=== PATIENT | male | born 2000 | race Caucasian/White ===

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

== ENCOUNTER 2020-04-14 22:27 | Observation (INO) ==
[2020-04-14] MEDS ORDERED: 0.9 % Sodium Chloride 1,000 ML IVC ONE ×2 (22:43→23:31)
[2020-04-14 23:10] LABS: Basophils % 0.2 %; Hemoglobin 17.3 g/dL (12.9-16.9); Red Cell Distribution Width 11.7 % (11.5-14.5); Segmented Neutrophils % 86.5 %
[2020-04-14 23:11] LABS: Hematocrit 48.7 % (37.5-50.1); Immature Granulocytes % 1.1 % (0-4); Mean Corpuscular HGB Conc 35.5 g/dL (31.6-35.5); Mean Corpuscular Hemoglobin 31.8 pg (28.0-33.3); Mean Corpuscular Volume 89.5 fL (83.0-100.0); Mean Platelet Volume 10.1 fL (9.4-12.4); Monocytes # 2.1 K/mcL (0.0-1.3); Monocytes % 8.2 %; Neutrophils # 22.1 K/mcL (1.6-8.9); Platelet Count 503 K/mcL (140-400); Red Blood Count 5.44 M/mcL (4.19-5.50); White Blood Count 25.6 K/mcL (4.3-11.1)
[2020-04-14 23:13] LABS: Basophils # 0.1 K/mcL (0.0-0.2)
[2020-04-14 23:14] LABS: VBG HCO3 17 mEq/L (21-27); VBG PCO2 35 mmHg (41-51); VBG PH 7.28 pH Units (7.32-7.42); VBG PO2 41 mmHg (25-50)
[2020-04-14 23:38] LABS: Platelet Estimate Normal (Normal)
[2020-04-14 23:40] LABS: Alanine Aminotransferase 23 Units/L (7-52); Albumin 5.4 g/dL (3.5-5.7); Albumin/Globulin Ratio 1.7 (1.1-2.2); Alkaline Phosphatase 93 Units/L (34-104); Aspartate Amino Transferase 13 Units/L (13-39); BUN/Creatinine Ratio 28 (6-26); Bilirubin,Direct 0.1 mg/dL (0.0-0.2); Bilirubin,Indirect 0.9 mg/dL (0.0-1.0); Blood Urea Nitrogen 39 mg/dL (6-20); Calcium 10.4 mg/dL (8.6-10.3); Carbon Dioxide 13 mEq/L (23-29); Chloride 86 mEq/L (98-107); Globulin 3.1 g/dL (2.4-3.5); Glucose 543 mg/dL (70-105); Lipase 3 Units/L (11-82); Magnesium 2.4 mg/dL (1.6-2.6); Osmolality,Calculated 308 (280-300); Phosphorous 5.1 mg/dL (2.7-4.5); Potassium 4.2 mEq/L (3.5-5.1); Sodium 132 mEq/L (136-145); Total Protein 8.5 g/dL (6.4-8.9); eGFR For African Americans > 60 (> 60); eGFR For Non-African Americans > 60 (> 60)
[2020-04-15] MEDS ORDERED: Naloxone 0.4 MG/ML INJ IVP PRN (01:30)
[2020-04-15] MEDS ORDERED: Acetaminophen 325 MG TABLET PO PRN (01:30)
[2020-04-15] MEDS ORDERED: D5% in 0.45% NACL 1,000 ML IVC PRN (01:32)
[2020-04-15] MEDS ORDERED: Insulin Regular, Human 100 UNIT/ML IV PRN ×2 (01:32)
[2020-04-15] MEDS ORDERED: 0.9 % Sodium Chloride 1,000 ML IVC PRN ×2 (01:45)
[2020-04-15] MEDS ORDERED: Insulin Human Regular 100 UNIT in 0.9 % Sodium Chloride 100 ML IVC SCH (01:45)
[2020-04-15] MEDS: Insulin Human Regular 100 UNIT in 0.9 % Sodium Chloride 100 ML IVC SCH ×2 (02:07→11:05)
[2020-04-15] MEDS: 0.45 % Sodium Chloride w/KCl 20 MEQ/1,000 ML MLS IVC SCH ×3 (02:07→05:15)
[2020-04-15 03:27] LABS: Basophils % 0.1 %; Hematocrit 43.5 % (37.5-50.1); Immature Granulocytes % 0.8 % (0-4); Lymphocytes # 1.1 K/mcL (0.6-4.6); Lymphocytes % 5.2 %; Mean Corpuscular HGB Conc 34.9 g/dL (31.6-35.5); Mean Corpuscular Hemoglobin 31.3 pg (28.0-33.3); Mean Corpuscular Volume 89.5 fL (83.0-100.0); Mean Platelet Volume 9.9 fL (9.4-12.4); Monocytes # 1.3 K/mcL (0.0-1.3); Monocytes % 6.1 %; Neutrophils # 18.5 K/mcL (1.6-8.9); Platelet Count 384 K/mcL (140-400); Red Blood Count 4.86 M/mcL (4.19-5.50); Red Cell Distribution Width 11.6 % (11.5-14.5); Segmented Neutrophils % 87.8 %
[2020-04-15 03:28] LABS: Hemoglobin 15.2 g/dL (12.9-16.9)
[2020-04-15 03:38] LABS: BUN/Creatinine Ratio 27 (6-26); Blood Urea Nitrogen 29 mg/dL (6-20); Carbon Dioxide 15 mEq/L (23-29); Chloride 101 mEq/L (98-107); Glucose 337 mg/dL (70-105); Osmolality,Calculated 299 (280-300); Phosphorous 2.2 mg/dL (2.7-4.5); Potassium 4.3 mEq/L (3.5-5.1); Sodium 135 mEq/L (136-145); eGFR For African Americans > 60 (> 60); eGFR For Non-African Americans > 60 (> 60)
[2020-04-15] MEDS: D5% in 0.45% NACL w KCl 20 MEQ/1,000 ML MLS IVC PRN ×2 (04:20→09:16)
[2020-04-15 05:53] LABS: Estimated Average Glucose 272 mg/dl
[2020-04-15] MEDS: Ondansetron 4 MG/2 ML VIAL IVP PRN ×2 (06:42→18:32)
[2020-04-15 08:05] LABS: VBG HCO3 21 mEq/L (21-27); VBG PCO2 34 mmHg (41-51); VBG PH 7.39 pH Units (7.32-7.42); VBG PO2 230 mmHg (25-50)
[2020-04-15 08:17] LABS: BUN/Creatinine Ratio 25 (6-26); Blood Urea Nitrogen 21 mg/dL (6-20); Calcium 8.5 mg/dL (8.6-10.3); Carbon Dioxide 21 mEq/L (23-29); Chloride 105 mEq/L (98-107); Glucose 226 mg/dL (70-105); Osmolality,Calculated 288 (280-300); Potassium 3.9 mEq/L (3.5-5.1); Sodium 134 mEq/L (136-145); eGFR For African Americans > 60 (> 60); eGFR For Non-African Americans > 60 (> 60)
[2020-04-15] MEDS: *HR* Dextrose 50 % in Water (Vial) 50 ML VIAL IVP PRN ×2 (11:06→12:40)
[2020-04-15 13:39] LABS: Basophils % 0.2 %; Hematocrit 37.8 % (37.5-50.1); Immature Granulocytes % 0.7 % (0-4); Lymphocytes % 5.4 %; Mean Corpuscular HGB Conc 34.1 g/dL (31.6-35.5); Mean Corpuscular Hemoglobin 30.2 pg (28.0-33.3); Mean Corpuscular Volume 88.5 fL (83.0-100.0); Mean Platelet Volume 9.9 fL (9.4-12.4); Monocytes # 2.6 K/mcL (0.0-1.3); Monocytes % 13.7 %; Neutrophils # 15.3 K/mcL (1.6-8.9); Platelet Count 306 K/mcL (140-400); Red Blood Count 4.27 M/mcL (4.19-5.50); Red Cell Distribution Width 11.7 % (11.5-14.5); White Blood Count 19.1 K/mcL (4.3-11.1)
[2020-04-15 13:42] LABS: Hemoglobin 12.9 g/dL (12.9-16.9)
[2020-04-15 13:51] LABS: BUN/Creatinine Ratio 22 (6-26); Blood Urea Nitrogen 17 mg/dL (6-20); Calcium 8.5 mg/dL (8.6-10.3); Carbon Dioxide 22 mEq/L (23-29); Chloride 104 mEq/L (98-107); Glucose 161 mg/dL (70-105); Osmolality,Calculated 281 (280-300); Potassium 3.7 mEq/L (3.5-5.1); Sodium 133 mEq/L (136-145); eGFR For African Americans > 60 (> 60); eGFR For Non-African Americans > 60 (> 60)
[2020-04-15] MEDS: 0.9 % Sodium Chloride 1,000 ML IVC SCH (17:32)
[2020-04-15] MEDS ORDERED: Dextrose Gel 15 GM/37.5 ML TUBE PO PRN ×2 (17:33)
[2020-04-15] MEDS ORDERED: D5% in Water 1,000 ML IVC PRN (17:33)
[2020-04-15] MEDS: Insulin LISPRO 300 UNITS/3 ML VIAL SQ SCH ×2 (18:23→21:02)
[2020-04-15] MEDS: Chloraseptic Spray 177 ML BOTTLE MM PRN (19:41)
[2020-04-16 01:02] LABS: Basophils % 0.1 %; Hematocrit 35.7 % (37.5-50.1); Hemoglobin 12.6 g/dL (12.9-16.9); Immature Granulocytes % 0.3 % (0-4); Lymphocytes # 1.2 K/mcL (0.6-4.6); Lymphocytes % 8.6 %; Mean Corpuscular HGB Conc 35.3 g/dL (31.6-35.5); Mean Corpuscular Volume 87.9 fL (83.0-100.0); Mean Platelet Volume 10.1 fL (9.4-12.4); Monocytes # 1.7 K/mcL (0.0-1.3); Monocytes % 11.9 %; Neutrophils # 11.2 K/mcL (1.6-8.9); Platelet Count 261 K/mcL (140-400); Red Blood Count 4.06 M/mcL (4.19-5.50); Red Cell Distribution Width 11.6 % (11.5-14.5); Segmented Neutrophils % 79.1 %; White Blood Count 14.2 K/mcL (4.3-11.1)
[2020-04-16 01:23] LABS: BUN/Creatinine Ratio 18 (6-26); Blood Urea Nitrogen 12 mg/dL (6-20); Calcium 8.1 mg/dL (8.6-10.3); Carbon Dioxide 21 mEq/L (23-29); Chloride 100 mEq/L (98-107); Glucose 194 mg/dL (70-105); Osmolality,Calculated 283 (280-300); Potassium 3.6 mEq/L (3.5-5.1); Sodium 134 mEq/L (136-145); eGFR For African Americans > 60 (> 60); eGFR For Non-African Americans > 60 (> 60)
[2020-04-16] MEDS: 0.9 % Sodium Chloride 1,000 ML IVC SCH ×2 (01:53→13:45)
[2020-04-16] MEDS: Ondansetron 4 MG/2 ML VIAL IVP PRN (01:54)
[2020-04-16] MEDS ORDERED: Melatonin 3 MG TABLET PO PRN (04:45)
[2020-04-16 08:20] LABS: Phosphorous 3.1 mg/dL (2.7-4.5)
[2020-04-16] MEDS: Insulin LISPRO 300 UNITS/3 ML VIAL SQ SCH ×4 (08:29→20:18)
[2020-04-16] MEDS: Insulin DETEMIR 100 UNIT/ML X5UNITS SQ SCH ×2 (08:29→20:28)
[2020-04-16] MEDS: Nicotine 21 MG PATCH.TD24 TD SCH (08:30)
[2020-04-16 10:36] LABS: Bilirubin,Urine Negative (Negative); Blood,Urine Negative (Negative); Clarity,Urine Clear (Clear); Color,Urine Colorless (Yellow); Glucose,Urine (UA) >=1000 mg/dL (Normal); Ketones,Urine >150 mg/dL (Negative); Leukocyte Esterase,Urine Negative (Negative); Mucus,Urine Few per lpf (None-Few); Nitrite,Urine Negative (Negative); PH,Urine 5.5 pH Units (5.0-8.0); Protein,Urine Trace mg/dL (Neg-Trace); RBC,Urine 0-3 per hpf (0-3); Specific Gravity,Urine 1.024 (1.010-1.025); Squamous Epithelial Cell,Urine Few per hpf (None-Few); Urobilinogen,Urine Normal (Normal); WBC,Urine 0-3 per hpf (0-3)
[2020-04-16] MEDS: 0.45 % Sodium Chloride w/KCl 20 MEQ/1,000 ML MLS IVC SCH ×4 (13:44→13:46)
[2020-04-16] MEDS: Chloraseptic Spray 177 ML BOTTLE MM PRN (17:20)
[2020-04-17 06:10] LABS: Basophils % 0.2 %; Eosinophils % 0.1 %; Hematocrit 42.7 % (37.5-50.1); Hemoglobin 15.2 g/dL (12.9-16.9); Immature Granulocytes % 0.3 % (0-4); Lymphocytes # 1.1 K/mcL (0.6-4.6); Mean Corpuscular HGB Conc 35.6 g/dL (31.6-35.5); Mean Corpuscular Hemoglobin 31.7 pg (28.0-33.3); Mean Platelet Volume 10.1 fL (9.4-12.4); Monocytes # 1.5 K/mcL (0.0-1.3); Monocytes % 10.7 %; Neutrophils # 11.2 K/mcL (1.6-8.9); Platelet Count 313 K/mcL (140-400); Red Cell Distribution Width 11.6 % (11.5-14.5); Segmented Neutrophils % 80.7 %; White Blood Count 13.9 K/mcL (4.3-11.1)
[2020-04-17 06:25] LABS: BUN/Creatinine Ratio 20 (6-26); Blood Urea Nitrogen 15 mg/dL (6-20); Carbon Dioxide 15 mEq/L (23-29); Chloride 97 mEq/L (98-107); Glucose 288 mg/dL (70-105); Osmolality,Calculated 283 (280-300); Potassium 3.7 mEq/L (3.5-5.1); Sodium 131 mEq/L (136-145); eGFR For African Americans > 60 (> 60); eGFR For Non-African Americans > 60 (> 60)
[2020-04-17 06:31] VITALS: BP 138/87
[2020-04-17] MEDS: Ondansetron 4 MG/2 ML VIAL IVP PRN (07:03)
[2020-04-17] MEDS: Insulin LISPRO 300 UNITS/3 ML VIAL SQ SCH (07:56)
[2020-04-17] MEDS: Nicotine 21 MG PATCH.TD24 TD SCH (07:56)
[2020-04-17] MEDS: Insulin DETEMIR 100 UNIT/ML X5UNITS SQ SCH (07:59)
== END 2020-04-17 10:38 | disposition home or self-care (01) ==
LOC: 2NNU 22:27 → EMEROOARM 22:27 → SUATTDRO 04-15 00:30 → 2NNU 04-15 01:10 → 3BNU 04-16 13:42
PROVIDERS: ADMIT Internal Medicine; ATTEND Family Medicine